=== PATIENT | female | born 1985 | race Caucasian/White ===

== ENCOUNTER 2016-04-19 15:44 | Emergency (ER) | payer OTHER ==
--- NOTE | 2016-04-19 18:02 | ED NURSING NOTES ---
Clinical Report - Nurses [facility] [address] [place] [address] 04/19/2016 15:45 Patient: TRAVIS ORTA TRIAGE Acuity: LEVEL 3. Chief Complaint: VOMITING and DIARRHEA. Alert. No acute distress. SEPSIS SCREEN: Sepsis Screen. Negative (no infection suspected/documented). --16:03 Estella Sheriff R.N. 15:58 04/19/16. BP: 129/79. HR: 98. RR: 18. O2 saturation: 99%. Temp: 99.3 F. Pain level now: 07/31. --16:03 Estella Sheriff R.N. Weight: 120.2 kg stated. Height/Length: 67 inches Per Patient. BMI: 41.5. --16:02 Estella Sheriff R.N. Medications Lipitor Oral 10 mg, daily. --16:00 Estella Sheriff R.N. Geodone 20 mg, 2x a day. --16:00 Estella Sheriff R.N. Lexapro Oral 20 mg, daily. --16:00 Estella Sheriff R.N. Gabapentin Oral in Am, 600 mg at Noc, 2x a day. --16:00 Estella Sheriff R.N. TraZODone HCl Oral 250mg, at bedtime. --16:00 Estella Sheriff R.N. Medication/allergy information source: the patient. --16:03 Estella Sheriff R.N. Allergies Latex. Definite Moderate(hives) Limictial. Definite (Leo/Estevan's) Zoloft. Definite Severe ("out-of-Body Experience) --16:00 Estella Sheriff R.N. History Arrived by private vehicle. Historian: mother. Accompanied by mother. Primary physician (Brittany). Onset. (1 weeks ago). Relates location as in the upper abdomen. Treatment [employer] TEARING: Recently seen in the office. SOCIAL HX: Heavy tobacco smoker (cigarette)- less than 1 pack per day. History of heavy drug use: marijuana. No alcohol use. FALL RISK ASSESSMENT: Fall risk assessment completed. No fall risk identified. NUTRITIONAL RISK ASSESSMENT: The nutritional risk assessment revealed no deficiencies. FUNCTIONAL ASSESSMENT: Functional assessment: no impairments noted. LEARNING NEEDS ASSESSMENT: The learning needs assessment revealed no barriers. SKIN INTEGRITY ASSESSMENT: Skin integrity risk assessment completed. No skin integrity risk identified. --16:03 Estella Sheriff R.N. PAST MEDICAL HX: Last normal menstrual period- Mar 20. --16:04 Estella Sheriff R.N. PROBLEMS: Substance Abuse. Abdominal Pain. PTSD. Anxiety Reaction. Depression. Vomiting. Neck Pain. ADHD - Attention Deficit Hyperactivity Disorder. Fatty Liver disease . Fibromyalgia. --16:01 Estella Sheriff R.N. ADDITIONAL SURGERIES: Appendectomy. Breast Cyst removal . Cholecystectomy. Foot surgery . Knee Surgery. Nose. Tonsillectomy. --16:01 Estella Sheriff R.N. Assessment GENERAL / NEURO / PSYCH: Alert. Oriented X 4. Appears in no acute distress. Patient appears calm and cooperative. RESPIRATORY: Respirations not labored. CVS: Capillary refill less than 2 seconds. GI / : Abdomen soft. SKIN: Mucous membranes are pink. Skin is warm and dry. --16:03 Estella Sheriff R.N. Interventions ID band on patient. To treatment room. --16:03 Estella Sheriff R.N. PHYSICAL ASSESSMENT 16:04/19/16. Ambulatory to room. GENERAL / NEURO / PSYCH: Alert. Oriented X 4. Appears in no acute distress. HEENT: Mucous membranes are pink. RESPIRATORY: Respirations not labored. CVS: Capillary refill less than 2 seconds. GI / : Abdomen soft. SKIN: Skin is warm and dry. --16:03 Estella Sheriff R.N. NURSING PROGRESS NOTES 16:04/19/16. Patient gowned. Two patient identifiers checked. Call light placed in reach. Side rails up x 1. Bed placed in lowest position. Brakes of bed on. Patient ready for evaluation- chart flagged. --16:03 Estella Sheriff R.N. 16:04/19/16. Checked patient name and birthdate: patient confirmed. Instructions provided to collect clean catch urine and patient verbalized understanding. Clean catch urine collected with return of yellow-colored clear urine; sample sent to lab. Specimen labeled in the presence of the patient. --16:04 Estella Sheriff R.N. 16:39 04/19/2016 Site #1 started via IV in the right hand with an 22g angiocath, with aseptic technique and good blood return; one attempt. --16:44 Estella Sheriff R.N. 16:39 04/19/2016 Started bag #1 1000 mL IV Fluids IV NS (Saline); at 999 mL/hr over 1 hour(s) via site #1 via IV pump. Allergies verified and confirmed 5 rights. IV patency established. IV site checked: no pain, redness, or swelling. IV flushed thoroughly pre- and post-medication administration. --16:44 Estella Sheriff R.N. 16:40 04/19/2016 Zofran (Ondansetron HCl) IVP 4 mg given over 1 minute(s) via site #1. Allergies verified and confirmed 5 rights. IV patency established. IV site checked: no pain, redness, or swelling. IV flushed thoroughly pre- and post-medication administration. IVP given by RN. --16:45 Estella Sheriff R.N. 16:40 04/19/2016 Toradol IVP 30 mg given over 1 minute(s) via site #1. Allergies verified and confirmed 5 rights. IV patency established. IV site checked: no pain, redness, or swelling. IV flushed thoroughly pre- and post-medication administration. IVP given by RN. --16:45 Estella Sheriff R.N. <<STRICKEN ENTRY-- 16:43 04/19/2016 Site #1 started via IV in the right hand with an 22g angiocath, with aseptic technique and good blood return; one attempt. Blood drawn: rainbow set. Labeled in the presence of the patient and sent to the lab. --16:43 Estella Sheriff R.N. --END STRIKE>> Correction. --16:43 Estella Sheriff R.N. 17:00. Checked patient name and birthdate. Blood samples drawn from the left forearm: green and purple top. (2 attempts made; lab called to draw remaining sample needed). --17:05 McQuoid, Demi, ER Tech1 17:37 04/19/2016 Zofran (Ondansetron HCl) IVP 4 mg given over 1 minute(s) via site #1. Allergies verified and confirmed 5 rights. IV patency established. IV site checked: no pain, redness, or swelling. IV flushed thoroughly pre- and post-medication administration. IVP given by RN. --17:37 Estella Sheriff R.N. 17:37 04/19/2016 Dilaudid (HYDROmorphone HCl PF) IVP 1 mg given over 2 minute(s) via site #1. Allergies verified, confirmed 5 rights and sedative warning given to the patient. IV patency established. IV site checked: no pain, redness, or swelling. IV flushed thoroughly pre- and post-medication administration. IVP given by RN. --17:37 Estella Sheriff R.N. 17:39 04/19/2016 IV Fluids IV NS Discontinued: bag #1 infused. Total amount infused: 1000 mL. IV patency established. IV site checked: no pain, redness, or swelling. IV flushed thoroughly. --17:39 Estella Sheriff R.N. 17:39 04/19/16. BP: 126/86. HR: 84. RR: 12. O2 saturation: 100% on room air. --17:40 Estella Sheriff R.N. 18:11 04/19/2016 Reglan (Metoclopramide HCl) IVP 10 mg given over 2 minute(s) via site #1. Allergies verified and confirmed 5 rights. IV patency established. IV site checked: no pain, redness, or swelling. IV flushed thoroughly pre- and post-medication administration. IVP given by RN. --18:26 Estella Sheriff R.N. 18:22 04/19/2016 Site #1 removed upon discharge. Catheter intact. Manual pressure and bandage applied. --18:27 Estella Sheriff R.N. DISPOSITION / DISCHARGE Departure time: 18:25 Apr 19 2016. Condition at departure: improved and stable. No learning barriers present. Discharge instructions provided and reviewed with the patient. Reviewed medication(s) side effects, precautions and dosing information. Prescription(s) given to the patient. Patient verbalized understanding. Written instructions provided in [place]. The patient was discharged by the nurse practitioner. She was discharged home and accompanied by parent. She left the Emergency Department ambulatory and via private vehicle. Parent driving. --18:35 Estella Sheriff R.N. 18:33 04/19/16. BP: 124/73. HR: 82. RR: 16. O2 saturation: 100% on room air. Temp: 98.4 F. Pain level now: 04/30. --18:35 Estella Sheriff R.N. Locked/Released at 04/19/2016 18:36 by Estella Sheriff R.N.
--- NOTE | 2016-04-19 18:02 | ED CLINICAL REPORT ---
Clinical Report - Physicians/Mid Levels [facility] [address] [place] [address] 04/19/2016 15:45 Patient: TRAVIS ORTA Time Seen: 15:54; upon arrival, initial patient contact, initial documentation, patient care assumed. Arrived- By private vehicle. Historian- patient. HISTORY OF PRESENT ILLNESS Chief Complaint: VOMITING and DIARRHEA. This started about 1 weeks ago and is still present. No recent travel. She has had nausea and abdominal pain. She has had vomiting (x3-4 episodes today). The vomiting has occurred several times and has been bilious. No feculent emesis, blood-tinged emesis, coffee-grounds emesis, frankly bloody emesis or unusually dark emesis. She has had diarrhea. This has occurred only once. No black stools, bloody stools, constipation, flank pain or history of possible bad food exposure. No known contact with a sick individual or change in routine. Has not recently been camping or on antibiotics. The illness is described as moderate. Similar symptoms previously: Chronically, as bad. Recent medical care: The patient was seen recently in a clinic. ( was at clinic tugboat captain, sent here for fluids). REVIEW OF SYSTEMS No fever, muscle aches, difficulty with urination, dark urine or chest pain. No difficulty breathing. Denies current . All systems otherwise negative, except as recorded above. PAST HISTORY See nurses notes. PROBLEMS: Substance Abuse. Abdominal Pain. PTSD. Anxiety Reaction. Depression. Vomiting. Neck Pain. ADHD - Attention Deficit Hyperactivity Disorder. Fatty Liver disease . Fibromyalgia. --16:01 Estella Sheriff R.N. ADDITIONAL SURGERIES: Appendectomy. Breast Cyst removal . Cholecystectomy. Foot surgery . Knee Surgery. Nose. Tonsillectomy. --16:01 Estella Sheriff R.N. SOCIAL HISTORY Light tobacco smoker. History of occasional drug use: marijuana. No alcohol use. No recent travel. Is a local resident. FAMILY HISTORY Negative. ADDITIONAL NOTES The nursing notes have been reviewed with agreement regarding the chief complaint, HPI, ROS, PMH and patient medications and allergies. PHYSICAL EXAM Vital Signs: 04/19/2016 15:58 BP: 129/79. HR: 98. RR: 18. O2 saturation: 99%. Temp: 99.3 F. Pain level now: 07/31. Have been reviewed as normal and appear to be correct. Appearance: Alert. Oriented X3. No acute distress. Eyes: Pupils equal, round and reactive to light. Eyes normal inspection. ENT: Pharynx normal. Neck: Normal inspection. Neck supple. CVS: Normal heart rate and rhythm. Heart sounds normal. Pulses normal. Respiratory: No respiratory distress. Breath sounds normal. Abdomen: Soft. Mild tenderness in the upper abdomen, right upper quadrant, epigastric area and left upper quadrant. No guarding, rebound tenderness or Phelps's, obturator or psoas sign present. Bowel sounds normal. No organomegaly. No mass. Mildly obese. Tenderness present. Back: Normal inspection. Skin: Skin warm and dry. Normal skin color. No rash. Normal skin turgor. Extremities: Extremities exhibit normal ROM. No lower extremity edema. Neuro: Oriented X 3. No motor deficit. No sensory deficit. LABS, X-RAYS, AND EKG Laboratory Tests: UA-Culture if indicated: (JADYN: 04/19/2016 16:00) ( MsgRcvd 04/19/2016 16:39) Final results Test Result Flag Units (Reference) URINE COLOR YELLOW URINE APPEARANCE CLEAR URINE GLUCOSE NEGATIVE (NEGATIVE) URINE BILIRUBIN NEGATIVE (NEGATIVE) URINE KETONE NEGATIVE (NEGATIVE) URINE SPECIFIC GRAVITY 1.025 (1.010-1.030) URINE PH 6.5 (5.0-8.0) URINE PROTEIN NEGATIVE (NEGATIVE) URINE UROBILINOGEN 0.2 EU/dL (0.2-1.0) URINE NITRITE NEGATIVE (NEGATIVE) URINE BLOOD TRACE-INTACT (NEGATIVE) URINE LEUK ESTERASE NEGATIVE (NEGATIVE) URINE RBC 3-5 rbc/hpf (0-1) URINE WBC 3-5 wbc/hpf (0-1) URINE EPITHELIAL CELLS 3-5 EPI/hpf (0-5) URINE BACTERIA TRACE (<1+) (NONE SEEN) URINE COMMENT CULT NOT INDICATED MUCUS 2+URINE CULTURES ARE SET-UP BASED ON THE FOLLOWING CRITERIA:POSITIVE NITRITEPOSITIVE LEUKOCYTE ESTERASEGREATER THAN 10 WHITE BLOOD CELLSMODERATE (2+) OR GREATER BACTERIA CBC w Diff: (JADYN: 04/19/2016 16:59) ( MsgRcvd 04/19/2016 17:23) Final results Test Result Flag Units (Reference) WHITE BLOOD COUNT 11.8 H K/uL (4.5-11.5) RED BLOOD COUNT 4.91 M/uL (4.00-5.20) HEMOGLOBIN 12.7 gm/dL (12.0-16.0) HEMATOCRIT 38.9 % (36.0-46.0) MEAN CELL VOLUME 79 L fL (80-100) MEAN CORPUSCULAR HGB 26 pg (26-34) MEAN CORPUSCULAR HGB CONC 33 g/dL (31-37) RED CELL DISTRIBUTION WIDTH 16.9 H % (11.6-14.8) PLATELET COUNT 344 K/uL (150-400) NEUTROPHIL % 63.3 % (50-75) LYMPH % 28.5 % (25-40) MONO % 6.3 % (3-14) EOSINOPHIL % 1.3 % (0-4) BASOPHIL % 0.6 % (0-2) CMP: (JADYN: 04/19/2016 16:59) ( MsgRcvd 04/19/2016 17:42) Final results Test Result Flag Units (Reference) GLUCOSE 86 mg/dL (70-110) BUN 7 mg/dL (7-18) CREATININE 0.7 mg/dL (0.6-1.3) Estimated GFR >60 mL/min Estimated GFR- >60 mL/min Note: Persistent reduction over 3 months in eGFR<60 mL/min/1.73 m2 defines CKD. Patients with eGFR values>=60 mL/min/1.73 m2 may also have CKD if evidence ofpersistent proteinuria. Additional information may be foundat www.kidney.org. SODIUM 138 mmol/L (136-145) POTASSIUM 3.8 mmol/L (3.5-5.1) CHLORIDE 104 mmol/L (98-107) CARBON DIOXIDE 24 mmol/L (21-32) CALCIUM 8.6 mg/dL (8.5-10.1) TOTAL PROTEIN 7.3 g/dL (6.4-8.2) ALBUMIN 3.4 g/dL (3.3-5.0) BILIRUBIN, TOTAL 0.3 mg/dL (0.0-1.0) ALKALINE PHOSPHATASE 76 U/L (46-116) AST (SGOT) 12 L U/L (15-37) ALT (SGPT) 18 U/L (12-78) LIPASE 180 U/L (73-393) AMYLASE 49 U/L (25-115) . PROGRESS AND PROCEDURES Patient counseled in person regarding the patient's stable condition, test results and diagnosis. 17:51. Differential Diagnosis: I considered gastritis, peptic ulcer disease, ischemia, gastroesophageal reflux disease, gastroparesis, Crohn's disease, ulcerative colitis, small bowel obstruction, colonic obstruction, colon cancer, gastroenteritis, cholecystitis, pancreatitis, viral syndrome, enterocolitis, urinary tract infection, hepatitis, sepsis, drugs and as a possible cause of vomiting in this patient. This is a partial list of diagnoses considered. Above considerations are based on history, physical exam and laboratory data. Differential diagnosis was discussed with patient. Disposition: Discharged home in good and improved condition (18:02). Condition: good and stable. CLINICAL IMPRESSION Intractable vomiting with nausea. No dehydration or volume depletion. Not bilious. Acute abdominal pain of undetermined cause. INSTRUCTIONS Take clear liquids only (frequent sips) for the next 24 hours until better. May continue medications with sips only. Advance diet as tolerated. Avoid. Warnings: GENERAL WARNINGS: Return or contact your physician immediately if your condition worsens or changes unexpectedly, if not improving as expected, or if other problems arise. SPECIFICALLY, return if you develop pain in the abdomen or pelvis, fever, the inability to keep fluids down, blood in vomitus, blood in diarrhea, fainting or lightheadedness. Prescription Medications: Reglan 10 mg tablets: take 1 orally every 6 hours as needed for nausea or vomiting. Dispense twenty (20). No refills. Bentyl 20 mg tablets: take 1 orally every 6 hours as needed. Dispense thirty (30). No refills. Substitution is permissible. Follow-up: Follow up with your doctor in about two days even if well. Summary of care provided to patient. Understanding of the discharge instructions verbalized by patient. (Electronically signed by Virginia Ames A.R.N.P. 04/19/2016 19:31)
--- NOTE | 2016-04-19 18:03 | ED ORDER SUMMARY ---
..... Patient: TRAVIS ORTA OrderSheet [facility] VisitID: [id number] [address] [place] [address] 31y, F Registration Date/Time: 04/19/2016 ORDER SHEET Weight: 120.2 kg (stated) Allergies: Latex, Limictial, Zoloft GENERAL ORDERS: CBC w Diff Urgent (16:04/19/2016 HBivens A.R.N.P.) (Ack 16:40 AMcQuoid ER Tech1) (17:31 MWinterer R.N.) CMP Urgent (16:04/19/2016 HBivens A.R.N.P.) (Ack 16:40 AMcQuoid ER Tech1) (17:31 MWinterer R.N.) UA-Culture if indicated Urgent (16:04/19/2016 HBivens A.R.N.P.) (Ack 16:40 AMcQuoid ER Tech1) (16:40 AMcQuoid ER Tech1) Amylase Urgent (16:04/19/2016 HBivens A.R.N.P.) (Ack 16:40 AMcQuoid ER Tech1) (17:31 MWinterer R.N.) Lipase Urgent (16:04/19/2016 HBivens A.R.N.P.) (Ack 16:40 AMcQuoid ER Tech1) (17:31 MWinterer R.N.) Serum Qualitative Urgent (16:04/19/2016 HBivens A.R.N.P.) (Ack 16:40 AMcQuoid ER Tech1) (17:31 MWinterer R.N.) MEDICATION ORDERS: IV FLUIDS: IV NS : initial bolus 1000 mL (1000 mL/hr), then none - (NOW) (16:04/19/2016 HBivens A.R.N.P.) (Ack 16:26 MWinterer R.N.) (16:44 MWinterer R.N.) Zofran IV 4 mg (NOW) (16:04/19/2016 HBivens A.R.N.P.) (Ack 16:26 MWinterer R.N.) (16:45 MWinterer R.N.) Toradol IV 30 mg (NOW) (16:25 04/19/2016 HBivens A.R.N.P.) (Ack 16:26 MWinterer R.N.) (16:45 MWinterer R.N.) Zofran IV 4 mg (NOW) (17:29 04/19/2016 HBivens A.R.N.P.) (Ack 17:32 MWinterer R.N.) (17:37 MWinterer R.N.) Dilaudid IV 1 mg (HIGH ALERT MEDICATION, NOW) (17:31 04/19/2016 HBivens A.R.N.P.) (Ack 17:32 MWinterer R.N.) (17:37 MWinterer R.N.) Reglan IV 10 mg (NOW) (18:04 04/19/2016 HBivens A.R.N.P.) (Ack 18:12 MWinterer R.N.) (18:26 MWinterer R.N.) ORDER SHEET NOTES: [Electronically signed by Estella Sheriff R.N. (18:36 04/19/2016)] [Electronically signed by Virginia Ames.R.N.P. (19:31 04/19/2016)] [Electronically locked/signed by Estella Sheriff R.N. (18:36 04/19/2016)]
--- NOTE | 2016-04-19 18:03 | ED ORDER SUMMARY ---
..... Patient: TRAVIS ORTA OrderSheet [facility] VisitID: [id number] [address] [place] [address] 31y, F Registration Date/Time: 04/19/2016 ORDER SHEET Weight: 120.2 kg (stated) Allergies: Latex, Limictial, Zoloft GENERAL ORDERS: CBC w Diff Urgent (16:04/19/2016 HBivens A.R.N.P.) (Ack 16:40 AMcQuoid ER Tech1) (17:31 MWinterer R.N.) CMP Urgent (16:04/19/2016 HBivens A.R.N.P.) (Ack 16:40 AMcQuoid ER Tech1) (17:31 MWinterer R.N.) UA-Culture if indicated Urgent (16:04/19/2016 HBivens A.R.N.P.) (Ack 16:40 AMcQuoid ER Tech1) (16:40 AMcQuoid ER Tech1) Amylase Urgent (16:04/19/2016 HBivens A.R.N.P.) (Ack 16:40 AMcQuoid ER Tech1) (17:31 MWinterer R.N.) Lipase Urgent (16:04/19/2016 HBivens A.R.N.P.) (Ack 16:40 AMcQuoid ER Tech1) (17:31 MWinterer R.N.) Serum Qualitative Urgent (16:04/19/2016 HBivens A.R.N.P.) (Ack 16:40 AMcQuoid ER Tech1) (17:31 MWinterer R.N.) MEDICATION ORDERS: IV FLUIDS: IV NS : initial bolus 1000 mL (1000 mL/hr), then none - (NOW) (16:04/19/2016 HBivens A.R.N.P.) (Ack 16:26 MWinterer R.N.) (16:44 MWinterer R.N.) Zofran IV 4 mg (NOW) (16:04/19/2016 HBivens A.R.N.P.) (Ack 16:26 MWinterer R.N.) (16:45 MWinterer R.N.) Toradol IV 30 mg (NOW) (16:25 04/19/2016 HBivens A.R.N.P.) (Ack 16:26 MWinterer R.N.) (16:45 MWinterer R.N.) Zofran IV 4 mg (NOW) (17:29 04/19/2016 HBivens A.R.N.P.) (Ack 17:32 MWinterer R.N.) (17:37 MWinterer R.N.) Dilaudid IV 1 mg (HIGH ALERT MEDICATION, NOW) (17:31 04/19/2016 HBivens A.R.N.P.) (Ack 17:32 MWinterer R.N.) (17:37 MWinterer R.N.) Reglan IV 10 mg (NOW) (18:04 04/19/2016 HBivens A.R.N.P.) (Ack 18:12 MWinterer R.N.) (18:26 MWinterer R.N.) ORDER SHEET NOTES: [Electronically signed by Estella Sheriff R.N. (18:36 04/19/2016)] [Electronically signed by Virginia Ames.R.N.P. (19:31 04/19/2016)] [Electronically locked/signed by Estella Sheriff R.N. (18:36 04/19/2016)]
--- NOTE | 2016-04-19 19:31 | ED MED RECONCILIATION SUMMARY ---
Patient: TRAVIS ORTA Medication Reconciliation Report [facility] VisitID: [id number] [address] [place] [address] 31y, F Registration Date/Time: 04/19/2016 Weight: 120.2 kg Height/Length: 67 in. BMI: 41.5 ALLERGIES: Latex, Limictial, Zoloft The patient's Home Medications are listed below: THE FOLLOWING MEDICATIONS NEED TO BE RECONCILED: Gabapentin Oral in Am, 600 mg at Noc, 2x a day Geodone 20 mg, 2x a day Lexapro Oral 20 mg, daily Lipitor Oral 10 mg, daily TraZODone HCl Oral 250mg, at bedtime The source(s) of the original Home Medication information: patient The following Medications were given to the patient in the Emergency Department: IV NS IV Fluids bolus 0, then 999 mL/hr, administered: 04/19/2016 4:39:00 PM Zofran [IVP] IVP 4 mg, administered: 04/19/2016 4:40:00 PM Toradol [IVP] IVP 30 mg, administered: 04/19/2016 4:40:00 PM Zofran [IVP] IVP 4 mg, administered: 04/19/2016 5:37:00 PM Dilaudid [IVP] IVP 1 mg, administered: 04/19/2016 5:37:00 PM Reglan [IVP] IVP 10 mg, administered: 04/19/2016 6:11:00 PM The following Medications were prescribed to the patient: Reglan 10 mg tablets: take 1 orally every 6 hours as needed for nausea or vomiting. Dispense twenty (20). No refills. -- Virginia Ames A.R.N.PDanielle Bentyl 20 mg tablets: take 1 orally every 6 hours as needed. Dispense thirty (30). No refills. Substitution is permissible. -- Virginia Ames A.R.N.P.
--- NOTE | 2016-04-19 19:31 | ED MAR SUMMARY ---
..... Medication Administration Record [facility] [address] [place] [address] Patient: TRAVIS ORTA Visit ID: [id number] 31y, F Weight: 120.2 kg Height/Length: 67 in BMI: 41.5 ALLERGIES: Latex, Limictial, Zoloft Start 16:39 04/19/2016 Estella Sheriff R.N., Stop 17:39 04/19/2016 Estella Sheriff R.N. Medication Administered: IV NS (SALINE), Dose: IV Fluids over 1 hour(s), Rate: 999 mL/hr, Dispensed: 1000 mL bag, Site: #1 right hand. Medication Ordered: IV NS : initial bolus 1000 mL (1000 mL/hr), then none - (NOW). Given 16:40 04/19/2016 Estella Sheriff R.N. Medication Administered: ZOFRAN [IVP] (ONDANSETRON HCL), Dose: 4 mg IVP over 1 minute(s), Site: #1 right hand. Medication Ordered: Zofran IV 4 mg (NOW). Given 16:40 04/19/2016 Estella Sheriff R.N. Medication Administered: TORADOL [IVP], Dose: 30 mg IVP over 1 minute(s), Site: #1 right hand. Medication Ordered: Toradol IV 30 mg (NOW). Given 17:37 04/19/2016 Estella Sheriff R.N. Medication Administered: ZOFRAN [IVP] (ONDANSETRON HCL), Dose: 4 mg IVP over 1 minute(s), Site: #1 right hand. Medication Ordered: Zofran IV 4 mg (NOW). Given 17:37 04/19/2016 Estella Sheriff R.N. Medication Administered: DILAUDID [IVP] (HYDROMORPHONE HCL PF), Dose: 1 mg IVP over 2 minute(s), Site: #1 right hand. Medication Ordered: Dilaudid IV 1 mg (HIGH ALERT MEDICATION, NOW). Given 18:11 04/19/2016 Estella Sheriff R.N. Medication Administered: REGLAN [IVP] (METOCLOPRAMIDE HCL), Dose: 10 mg IVP over 2 minute(s), Site: #1 right hand. Medication Ordered: Reglan IV 10 mg (NOW).
--- NOTE | 2016-04-19 19:31 | ED DISCHARGE INSTRUCTIONS ---
Patient: TRAVIS ORTA General Instructions [facility] VisitID: [id number] [place] [address] 31y, F Registration Date/Time: 04/19/2016 Intractable vomiting with nausea. No dehydration or volume depletion. Not bilious. Acute abdominal pain of undetermined cause. INSTRUCTIONS Take clear liquids only (frequent sips) for the next 24 hours until better. May continue medications with sips only. Advance diet as tolerated. Avoid. Warnings: GENERAL WARNINGS: Return or contact your physician immediately if your condition worsens or changes unexpectedly, if not improving as expected, or if other problems arise. SPECIFICALLY, return if you develop pain in the abdomen or pelvis, fever, the inability to keep fluids down, blood in vomitus, blood in diarrhea, fainting or lightheadedness. Prescription Medications: Reglan 10 mg tablets: take 1 orally every 6 hours as needed for nausea or vomiting. Dispense twenty (20). No refills. Bentyl 20 mg tablets: take 1 orally every 6 hours as needed. Dispense thirty (30). No refills. Substitution is permissible. Follow-up: Follow up with your doctor in about two days even if well. Summary of care provided to patient. Understanding of the discharge instructions verbalized by patient. ADDITIONAL INFORMATION Vomiting [6Yr-Adult] Vomiting is a common symptom that may be due to different causes. These include gastroenteritis ("stomach flu"), food poisoning and gastritis. There are other more serious causes of vomiting which may be hard to diagnose early in the illness. Therefore, it is important to watch for the warning signs listed below. The main danger from repeated vomiting is dehydration. This is due to excess loss of water and minerals from the body. When this occurs, body fluids must be replaced. Home Care: If symptoms are severe, rest at home for the next 24 hours. You may use acetaminophen (Tylenol) or ibuprofen (Motrin, Advil) to control fever, unless another medicine was prescribed. [NOTE : If you have chronic liver or kidney disease or ever had a stomach ulcer or GI bleeding, talk with your doctor before using these medicines.] (Aspirin should never be used in anyone under 18 years of age who is ill with a fever. It may cause severe liver damage.) Avoid tobacco and alcohol use, which may worsen your symptoms. If medicines for vomiting were prescribed, take as directed. Once vomiting stops, then follow these guidelines: During The First 12-24 Hours follow the diet below: FRUIT JUICES: Apple, grape juice, clear fruit drinks, and electrolyte replacement drinks. BEVERAGES: Soft drinks without caffeine; mineral water (plain or flavored), decaffeinated tea and coffee. SOUPS: Clear broth, consomm and bouillon DESSERTS: Plain gelatin, popsicles and fruit juice bars. As you feel better, you may add 6-8 ounces of yogurt per day. During The Next 24 Hours you may add the following to the above: Hot cereal, plain toast, bread, rolls, crackers Plain noodles, rice, mashed potatoes, chicken noodle or rice soup Unsweetened canned fruit (avoid pineapple), bananas Limit caffeine and chocolate. No spices or seasonings except salt. During The Next 24 Hours Gradually resume a normal diet, as you feel better and your symptoms lessen. Follow Up with your doctor as advised if you are not improving over the next 2-3 days. Get Prompt Medical Attention if any of the following occur: Constant right-sided lower abdominal pain or increasing general abdominal pain Continued vomiting (unable to keep liquids down) for 24 hours Frequent diarrhea (more than 5 times a day); blood (red or black color) or mucus in diarrhea Reduced urine output or extreme thirst Weakness, dizziness or fainting Unusually drowsy or confused Fever of 100.4F (38C) oral or higher, not better with fever medication Yellow color of the eyes or skin Abdominal Pain, Unknown Cause (Female) The exact cause of your abdominal (stomach) pain is not certain. This does not mean that this is something to worry about, or the right tests were not done. Everyone likes to know the exact cause of the problem, but sometimes with abdominal pain, there is no clear-cut cause, and this could be a good thing. The good news is that your symptoms can be treated, and you will feel better. Your condition does not seem serious now; however, sometimes the signs of a serious problem may take more time to appear. For this reason,it is important for you to watch for any new symptoms, problems,or worsening of your condition. Over the next few days, the abdominal pain may come and go, or be continuous. Other common symptoms can include nausea and vomiting. Sometimes it can be difficult to tell if you feel nauseous, you may just feel bad and not associate that feeling with nausea. Constipation, diarrhea, and a fever may go along with the pain. The pain may continue even if treated correctly over the following days. Depending on how things go, sometimes the cause can become clear and may require further or different treatment. Additional evaluations, medications, or tests may be needed. Home care Your health care provider may prescribe medications for pain, symptoms, or an infection. Follow the health care provider's instructions for taking these medications. General care Rest until your next exam. No strenuous activities. Try to find positions that ease discomfort. A small pillow placed on the abdomen may help relieve pain. Something warm on your abdomen (such as a heating pad) may help, but be careful not to burn yourself. Diet Do not force yourself to eat, especially if having cramps, vomiting, or diarrhea. Water is important so you do not get dehydrated. Soup may also be good. Sports drinks may also help, especially if they are not too acidic. Make sure you don't drink sugary drinks as this can make things worse. Take liquids in small amounts. Do not guzzle them. Caffeine sometimes makes the pain and cramping worse. Avoid dairy products if you have vomiting or diarrhea. Don't eat large amounts at a time. Wait a few minutes between bites. Eat a diet low in fiber (called a low-residue diet). Foods allowed include refined breads, white rice, fruit and vegetable juices without pulp, tender meats. These foods will pass more easily through the intestine. Avoid whole-grain foods, whole fruits and vegetables, meats, seeds and nuts, fried or fatty foods, dairy, alcohol and spicy foods until your symptoms go away. Follow-up care Follow up with your health care provider as instructed, or if your pain does not begin to improve in the next 24 hours. When to seek medical care Seek prompt medical care if any of the following occur: Pain gets worse or moves to the right lower abdomen New or worsening vomiting or diarrhea Swelling of the abdomen Unable to pass stool for more than three days Fever of 100.4F (38C) or higher, or as directed by your healthcare provider. Blood in vomit or bowel movements (dark red or black color) Jaundice (yellow color of eyes and skin) Weakness, dizziness Chest, arm, back, neck or jaw pain Unexpected vaginal bleeding or missed period Call 911 Call emergency services if any of the following occur: Trouble breathing Confusion Fainting or loss of consciousness Rapid heart rate Seizure Clear Liquid Diet Clear liquids are any liquid that you can see through as well as those that are very easy to digest. This is used while the body is recovering from irritation or infection of the stomach or intestinal tract. It may also be used before special procedures or surgery. This diet is to be used no more than three days. You may include the following items. Adults Adults should drink a total of 23 quarts of liquid per day. It may be easier to drink small frequent servings rather than a few large ones. Liquids can include: Fruit juices.Strained orange juice or lemonade (no pulp), apple, grape and cranberry juice, clear fruit drinks, sports drinks Beverages.Sport drinks, sodas, mineral water (plain or flavored), tea, black coffee, liquid gelatin (add twice the recommended amount of water) Soups.Clear broth, consomm, bouillon Desserts.Plain gelatin, popsicles, fruit juice bars Children Over 2 years old The following liquids are acceptable for children over age 2: Fruit juices.Strained orange juice or lemonade (no pulp), apple, grape and cranberry juice, clear fruit drinks Beverages. Sports drinks, sodas, mineral water (plain or flavored), tea, liquid gelatin (add twice the recommended amount of water) Soups. Clear broth, consomm, bouillon Desserts. Plain gelatin, popsicles, fruit juice bars Children under 2 years old Oral rehydration fluids such are available at drug stores and most grocery stores without a prescription. Adrian Diet A bland diet is used for patients with an upset stomach. It consists of foods that are mild and easy to digest. It is better to eat small frequent meals rather than three large meals a day. BEVERAGES OK: Fruit juices, non-caffeinated teas and coffee, non-carbonated castillo AVOID: Carbonated beverage, caffeinated tea and coffee, all alcoholic beverages BREAD OK: Refined white, wheat or rye bread, melissa or soda crackers, [place] toast, plain rolls, bagels AVOID: Whole-grain bread CEREAL OK: Refined cereals: cooked or ready to eat AVOID: Whole grain cereals and granola, or those containing bran, seeds or nuts DESSERTS OK: Peanut butter and all others except those to "avoid" AVOID: Chocolate, cocoa, coconut, popcorn, nuts, seeds, jam, marmalade FRUITS OK: Canned, cooked, frozen or fresh fruits without seeds or tough skin AVOID: Olives, skin and seeds of fruit MEATS OK: All fresh or preserved meat, fish and fowl AVOID: Any that are prepared with those spices to "avoid" CHEESE & EGGS OK: Eggs, cottage cheese, cream cheese, other cheeses AVOID: All cheeses made with those spices to "avoid" POTATOES & PASTA OK: Potato, rice, macaroni, noodles, spaghetti AVOID: None SOUPS OK: All soups without heavy seasoning AVOID: Soups made with those spices to "avoid" VEGETABLES OK: Canned, cooked, fresh or frozen mildly flavored vegetables without seeds, skins or coarse fiber AVOID: Vegetables prepared with those spices to "avoid"; skin and seeds of vegetables and those with coarse fiber SPICES OK: Salt, lemon and [place] juice, vinegar, all extracts, guerline, cinnamon, thyme, mace, allspice, paprika AVOID: [place] powder, cloves, pepper, seed spices, garlic, gravy pickles, highly seasoned salad dressings Clear Liquid Diet Clear liquids are any liquid that you can see through as well as those that are very easy to digest. This is used while the body is recovering from irritation or infection of the stomach or intestinal tract. It may also be used before special procedures or surgery. This diet is to be used no more than three days. You may include the following items. Adults Adults should drink a total of 23 quarts of liquid per day. It may be easier to drink small frequent servings rather than a few large ones. Liquids can include: Fruit juices.Strained orange juice or lemonade (no pulp), apple, grape and cranberry juice, clear fruit drinks, sports drinks Beverages.Sport drinks, sodas, mineral water (plain or flavored), tea, black coffee, liquid gelatin (add twice the recommended amount of water) Soups.Clear broth, consomm, bouillon Desserts.Plain gelatin, popsicles, fruit juice bars Children Over 2 years old The following liquids are acceptable for children over age 2: Fruit juices.Strained orange juice or lemonade (no pulp), apple, grape and cranberry juice, clear fruit drinks Beverages. Sports drinks, sodas, mineral water (plain or flavored), tea, liquid gelatin (add twice the recommended amount of water) Soups. Clear broth, consomm, bouillon Desserts. Plain gelatin, popsicles, fruit juice bars Children under 2 years old Oral rehydration fluids such are available at drug stores and most grocery stores without a prescription. Metoclopramide Hydrochloride Oral tablet What is this medicine? METOCLOPRAMIDE (met oh kloe PRA mide) is used to treat the symptoms of gastroesophageal reflux disease (GERD) like heartburn. It is also used to treat people with slow emptying of the stomach and intestinal tract. How should I use this medicine? Take this medicine by mouth with a glass of water. Follow the directions on the prescription label. Take this medicine on an empty stomach, about 30 minutes before eating. Take your doses at regular intervals. Do not take your medicine more often than directed. Do not stop taking except on the advice of your doctor or health adult daycare coordinator. A special MedGuide will be given to you by the pharmacist with each prescription and refill. Be sure to read this information carefully each time. Talk to your crystal grower regarding the use of this medicine in children. Special care may be needed. What side effects may I notice from receiving this medicine? Side effects that you should report to your doctor or health adult daycare coordinator as soon as possible: allergic reactions like skin rash, itching or hives, swelling of the face, lips, or tongue abnormal production of milk in females breast enlargement in both males and females change in the way you walk difficulty moving, speaking or swallowing drooling, lip smacking, or rapid movements of the tongue excessive sweating fever involuntary or uncontrollable movements of the eyes, head, arms and legs irregular heartbeat or palpitations muscle twitches and spasms unusually weak or tired Side effects that usually do not require medical attention (report to your doctor or health adult daycare coordinator if they continue or are bothersome): change in sex drive or performance depressed mood diarrhea difficulty sleeping headache menstrual changes restless or nervous What may interact with this medicine? acetaminophen cyclosporine digoxin medicines for blood pressure medicines for diabetes, including insulin medicines for hay fever and other allergies medicines for depression, especially an Monoamine Oxidase Inhibitor (MAOI) medicines for Parkinson's disease, like levodopa medicines for sleep or for pain tetracycline What if I miss a dose? If you miss a dose, take it as soon as you can. If it is almost time for your next dose, take only that dose. Do not take double or extra doses. Where should I keep my medicine? Keep out of the reach of children. Store at room temperature between 20 and 25 degrees C (68 and 77 degrees F). Protect from light. Keep container tightly closed. Throw away any unused medicine after the expiration date. What should I tell my health care provider before I take this medicine? They need to know if you have any of these conditions: breast cancer depression diabetes heart failure high blood pressure kidney disease liver disease Parkinson's disease or a movement disorder pheochromocytoma seizures stomach obstruction, bleeding, or perforation an unusual or allergic reaction to metoclopramide, procainamide, sulfites, other medicines, foods, dyes, or preservatives or trying to get breast-feeding What should I watch for while using this medicine? It may take a few weeks for your stomach condition to start to get better. However, do not take this medicine for longer than 12 weeks. The longer you take this medicine, and the more you take it, the greater your chances are of developing serious side effects. If you are an elderly patient, a female patient, or you have diabetes, you may be at an increased risk for side effects from this medicine. Contact your doctor immediately if you start having movements you cannot control such as lip smacking, rapid movements of the tongue, involuntary or uncontrollable movements of the eyes, head, arms and legs, or muscle twitches and spasms. Patients and their families should watch out for worsening depression or thoughts of suicide. Also watch out for any sudden or severe changes in feelings such as feeling anxious, agitated, panicky, irritable, hostile, aggressive, impulsive, severely restless, overly excited and hyperactive, or not being able to sleep. If this happens, especially at the beginning of treatment or after a change in dose, call your doctor. Do not treat yourself for high fever. Ask your doctor or health adult daycare coordinator for advice. You may get drowsy or dizzy. Do not drive, use machinery, or do anything that needs mental alertness until you know how this drug affects you. Do not stand or sit up quickly, especially if you are an older patient. This reduces the risk of dizzy or fainting spells. Alcohol can make you more drowsy and dizzy. Avoid alcoholic drinks. Dicyclomine Hydrochloride Oral tablet What is this medicine? DICYCLOMINE (dye SYE isabelle khoury) is used to treat bowel problems including irritable bowel syndrome. How should I use this medicine? Take this medicine by mouth with a glass of water. Follow the directions on the prescription label. It is best to take this medicine on an empty stomach, 30 minutes to 1 hour before meals. Take your medicine at regular intervals. Do not take your medicine more often than directed. Talk to your crystal grower regarding the use of this medicine in children. Special care may be needed. While this drug may be prescribed for children as young as 6 months of age for selected conditions, precautions do apply. Patients over 65 years old may have a stronger reaction and need a smaller dose. What side effects may I notice from receiving this medicine? Side effects that you should report to your doctor or health adult daycare coordinator as soon as possible: agitation, nervousness, confusion difficulty swallowing dizziness, drowsiness fast or slow heartbeat hallucinations pain or difficulty passing urine Side effects that usually do not require medical attention (report to your doctor or health adult daycare coordinator if they continue or are bothersome): constipation headache nausea or vomiting sexual difficulty What may interact with this medicine? amantadine antacids benztropine digoxin disopyramide medicines for allergies, colds and breathing difficulties medicines for alzheimer's disease medicines for anxiety or sleeping problems medicines for depression or psychotic disturbances medicines for diarrhea medicines for pain metoclopramide tegaserod What if I miss a dose? If you miss a dose, take it as soon as you can. If it is almost time for your next dose, take only that dose. Do not take double or extra doses. Where should I keep my medicine? Keep out of the reach of children. Store at room temperature below 30 degrees C (86 degrees F). Protect from light. Throw away any unused medicine after the expiration date. What should I tell my health care provider before I take this medicine? They need to know if you have any of these conditions: difficulty passing urine esophagus problems or heartburn glaucoma heart disease, or previous heart attack myasthenia gravis prostate trouble stomach infection, or obstruction ulcerative colitis an unusual or allergic reaction to dicyclomine, other medicines, foods, dyes, or preservatives or trying to get breast-feeding What should I watch for while using this medicine? You may get drowsy, dizzy, or have blurred vision. Do not drive, use machinery, or do anything that needs mental alertness until you know how this medicine affects you. To reduce the risk of dizzy or fainting spells, do not sit or stand up quickly, especially if you are an older patient. Alcohol can make you more drowsy, avoid alcoholic drinks. Stay out of bright light and wear sunglasses if this medicine makes your eyes more sensitive to light. Avoid extreme heat (hot tubs, saunas). This medicine can cause you to sweat less than normal. Your body temperature could increase to dangerous levels, which may lead to heat stroke. Antacids can stop this medicine from working. If you get an upset stomach and want to take an antacid, make sure there is an interval of at least 1 to 2 hours before or after you take this medicine. Your mouth may get dry. Chewing sugarless gum or sucking hard candy, and drinking plenty of water may help. Contact your doctor if the problem does not go away or is severe. You have been given the following additional information: Vomiting (6Y-Adult) Abdominal Pain, Unknown Cause, (Female) Diet, Clear Liquid Diet, Adrian (Adult) Diet, Clear Liquid Metoclopramide Hydrochloride Oral tablet Dicyclomine Hydrochloride Oral tablet (Electronically signed by Virginia Ames A.R.N.P. 04/19/2016 19:31)
--- NOTE | 2016-04-19 19:31 | ED MAR SUMMARY ---
..... Medication Administration Record [facility] [address] [place] [address] Patient: TRAVIS ORTA Visit ID: [id number] 31y, F Weight: 120.2 kg Height/Length: 67 in BMI: 41.5 ALLERGIES: Latex, Limictial, Zoloft Start 16:39 04/19/2016 Estella Sheriff R.N., Stop 17:39 04/19/2016 Estella Sheriff R.N. Medication Administered: IV NS (SALINE), Dose: IV Fluids over 1 hour(s), Rate: 999 mL/hr, Dispensed: 1000 mL bag, Site: #1 right hand. Medication Ordered: IV NS : initial bolus 1000 mL (1000 mL/hr), then none - (NOW). Given 16:40 04/19/2016 Estella Sheriff R.N. Medication Administered: ZOFRAN [IVP] (ONDANSETRON HCL), Dose: 4 mg IVP over 1 minute(s), Site: #1 right hand. Medication Ordered: Zofran IV 4 mg (NOW). Given 16:40 04/19/2016 Estella Sheriff R.N. Medication Administered: TORADOL [IVP], Dose: 30 mg IVP over 1 minute(s), Site: #1 right hand. Medication Ordered: Toradol IV 30 mg (NOW). Given 17:37 04/19/2016 Estella Sheriff R.N. Medication Administered: ZOFRAN [IVP] (ONDANSETRON HCL), Dose: 4 mg IVP over 1 minute(s), Site: #1 right hand. Medication Ordered: Zofran IV 4 mg (NOW). Given 17:37 04/19/2016 Estella Sheriff R.N. Medication Administered: DILAUDID [IVP] (HYDROMORPHONE HCL PF), Dose: 1 mg IVP over 2 minute(s), Site: #1 right hand. Medication Ordered: Dilaudid IV 1 mg (HIGH ALERT MEDICATION, NOW). Given 18:11 04/19/2016 Estella Sheriff R.N. Medication Administered: REGLAN [IVP] (METOCLOPRAMIDE HCL), Dose: 10 mg IVP over 2 minute(s), Site: #1 right hand. Medication Ordered: Reglan IV 10 mg (NOW).
--- NOTE | 2016-04-19 19:31 | ED MED RECONCILIATION SUMMARY ---
Patient: TRAVIS ORTA Medication Reconciliation Report [facility] VisitID: [id number] [address] [place] [address] 31y, F Registration Date/Time: 04/19/2016 Weight: 120.2 kg Height/Length: 67 in. BMI: 41.5 ALLERGIES: Latex, Limictial, Zoloft The patient's Home Medications are listed below: THE FOLLOWING MEDICATIONS NEED TO BE RECONCILED: Gabapentin Oral in Am, 600 mg at Noc, 2x a day Geodone 20 mg, 2x a day Lexapro Oral 20 mg, daily Lipitor Oral 10 mg, daily TraZODone HCl Oral 250mg, at bedtime The source(s) of the original Home Medication information: patient The following Medications were given to the patient in the Emergency Department: IV NS IV Fluids bolus 0, then 999 mL/hr, administered: 04/19/2016 4:39:00 PM Zofran [IVP] IVP 4 mg, administered: 04/19/2016 4:40:00 PM Toradol [IVP] IVP 30 mg, administered: 04/19/2016 4:40:00 PM Zofran [IVP] IVP 4 mg, administered: 04/19/2016 5:37:00 PM Dilaudid [IVP] IVP 1 mg, administered: 04/19/2016 5:37:00 PM Reglan [IVP] IVP 10 mg, administered: 04/19/2016 6:11:00 PM The following Medications were prescribed to the patient: Reglan 10 mg tablets: take 1 orally every 6 hours as needed for nausea or vomiting. Dispense twenty (20). No refills. -- Virginia Ames A.R.N.PDanielle Bentyl 20 mg tablets: take 1 orally every 6 hours as needed. Dispense thirty (30). No refills. Substitution is permissible. -- Virginia Ames A.R.N.P.
[2016-07-08] MEDS ORDERED: TRAZODONE HCL100 MG PO (13:59)
[2016-07-08] MEDS ORDERED: VISTARIL25 MG PO (13:59)
[2016-07-08] MEDS ORDERED: LATUDA20 MG PO (14:00)
[2016-07-08] MEDS ORDERED: LIPITOR10 MG PO (14:00)
[2016-07-08] MEDS ORDERED: GABAPENTIN100 MG PO (14:01)
[2016-07-08] MEDS ORDERED: LEXAPRO20 MG PO (14:01)
[2016-07-08] MEDS ORDERED: PROBIOTI1 PO (14:02)
[2016-07-08] MEDS ORDERED: ZYRTEC ALLERGY10 MG PO (14:02)
[2016-07-08] MEDS ORDERED: MULTIVITAMIN GUMMIES PO (14:03)
== END 2016-04-19 18:25 | disposition home or self-care (01) ==
LOC: ED SRH 15:44
DX: R11.2 Nausea with vomiting, unspecified (principal); R10.9 Unspecified abdominal pain; F17.210 Nicotine dependence, cigarettes, uncomplicated; Z79.899 Other long term (current) drug therapy; Z88.8 Allergy status to other drugs, medicaments and biological substances
CPT/HCPCS: 90004; 90074; 90100; 92235; 92530; 95059; 98428

== ENCOUNTER 2016-05-14 11:31 | Outpatient (CLI) | payer OTHER ==
--- NOTE | 2016-05-14 12:22 | DIAGNOSTIC IMAGING REPORT ---
PROCEDURE: XR FOOT 3 VIEWS - RIGHT INDICATION: S/P FOOT SURGERY , RIGHT TECHNIQUE: Three views. COMPARISON: None. FINDINGS: Healed second metatarsal fracture fixed with a side plate and six screws. IMPRESSION: 1. Healed second metatarsal fracture fixed with a side plate and six screws.
[2016-07-08] MEDS ORDERED: VISTARIL25 MG PO (13:59)
[2016-07-08] MEDS ORDERED: TRAZODONE HCL100 MG PO (13:59)
[2016-07-08] MEDS ORDERED: LATUDA20 MG PO (14:00)
[2016-07-08] MEDS ORDERED: LIPITOR10 MG PO (14:00)
[2016-07-08] MEDS ORDERED: LEXAPRO20 MG PO (14:01)
[2016-07-08] MEDS ORDERED: GABAPENTIN100 MG PO (14:01)
[2016-07-08] MEDS ORDERED: PROBIOTI1 PO (14:02)
[2016-07-08] MEDS ORDERED: ZYRTEC ALLERGY10 MG PO (14:02)
[2016-07-08] MEDS ORDERED: MULTIVITAMIN GUMMIES PO (14:03)
== END 2016-05-14 23:00 | disposition home or self-care (01) ==
LOC: XR SRH 11:31
DX: Z98.890 Other specified postprocedural states (principal)

== ENCOUNTER 2016-05-17 10:23 | Outpatient (CLI) | payer OTHER ==
[2016-07-08] MEDS ORDERED: VISTARIL25 MG PO (13:59)
[2016-07-08] MEDS ORDERED: TRAZODONE HCL100 MG PO (13:59)
[2016-07-08] MEDS ORDERED: LATUDA20 MG PO (14:00)
[2016-07-08] MEDS ORDERED: LIPITOR10 MG PO (14:00)
[2016-07-08] MEDS ORDERED: GABAPENTIN100 MG PO (14:01)
[2016-07-08] MEDS ORDERED: LEXAPRO20 MG PO (14:01)
[2016-07-08] MEDS ORDERED: PROBIOTI1 PO (14:02)
[2016-07-08] MEDS ORDERED: ZYRTEC ALLERGY10 MG PO (14:02)
[2016-07-08] MEDS ORDERED: MULTIVITAMIN GUMMIES PO (14:03)
== END 2016-05-17 23:00 ==
LOC: LAB SRH 10:23
DX: K31.84 Gastroparesis (principal); R11.2 Nausea with vomiting, unspecified
CPT/HCPCS: 90074; 90100; 90648; 91096; 91282; 91504; 93140; 95059

== ENCOUNTER 2016-05-28 12:26 | Outpatient (CLI) | payer OTHER ==
--- NOTE | 2016-05-28 15:16 | DIAGNOSTIC IMAGING REPORT ---
PROCEDURE: MR LOWER EXT JOINT WO CONT-RT INDICATION: CHRONIC ANKLE INSTABILITY TECHNIQUE: Sagittal, axial, coronal, and coronal oblique T1 and STIR sequences obtained through the ankle. COMPARISON: None. FINDINGS: Osseous structures and articular surfaces: Marrow signal is diffusely mildly heterogeneous. 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 No osteochondral lesion or cystic changes. There is probable avulsion fracture off the distal fibula incompletely visualized. Mild chondromalacia involving the posterior and middle subtalar joints. No underlying osseous edema. There is susceptibility artifact from second metatarsal fusion hardware. Ligaments: The anterior talofibular ligament is not seen. The fragments of the calcaneofibular ligament near its origin is seen. Posterior talofibular ligament is intact. Proximally, the anterior and posterior tibiofibular ligaments are intact. Medially, the deltoid bands appear grossly intact. Spring ligament bands appear grossly intact where they can be visualized. Tendons: Peroneus brevis tendon is suboptimally seen and probably demonstrates a split tear above and below the lateral malleolus. The posterior tibial tendon appears bifid. Medial tendons are normal in position and signal. Anterior tendon group is unremarkable. The Achilles tendon appears normal. Soft tissues, musculature, and fluid: There is a mild amount of fluid focally in the anterolateral gutter of the ankle, and to a lesser extent anterior to the lateral tibiotalar joint. No debris or scarring. Normal muscular signal. Plantar fascia is normal. Normal fatty signal in the sinus tarsi. IMPRESSION: 1. ATFL and CFL appear torn and there is fluid in the anterolateral gutter suggestive of instability. No focal scar to suggest impingement. 2. Probably chronic split tear of the peroneus brevis tendon. 3. 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 4. Chondromalacia in the lateral tibiotalar joint without underlying osseous change. 5. Remote distal fibular avulsion fracture suspected.
[2016-07-08] MEDS ORDERED: TRAZODONE HCL100 MG PO (13:59)
[2016-07-08] MEDS ORDERED: VISTARIL25 MG PO (13:59)
[2016-07-08] MEDS ORDERED: LATUDA20 MG PO (14:00)
[2016-07-08] MEDS ORDERED: LIPITOR10 MG PO (14:00)
[2016-07-08] MEDS ORDERED: LEXAPRO20 MG PO (14:01)
[2016-07-08] MEDS ORDERED: GABAPENTIN100 MG PO (14:01)
[2016-07-08] MEDS ORDERED: PROBIOTI1 PO (14:02)
[2016-07-08] MEDS ORDERED: ZYRTEC ALLERGY10 MG PO (14:02)
[2016-07-08] MEDS ORDERED: MULTIVITAMIN GUMMIES PO (14:03)
== END 2016-05-28 23:00 ==
LOC: MRI SRH 12:26
DX: M94.271 Chondromalacia, right ankle and joints of right foot (principal); R93.7 Abnormal findings on diagnostic imaging of other parts of musculoskeletal system

== ENCOUNTER 2016-07-09 06:17 | Day surgery (SDC) | payer OTHER ==
--- NOTE | 2016-07-08 19:38 | HISTORY AND PHYSICAL ---
ADMITTED: 07/09/2016 HISTORY OF PRESENT ILLNESS: The patient is a 31-year-old female with a chief complaint of a painful right ankle and foot. She has had significant surgery done on the right foot secondary to a giant cell tumor. Majority of her surgical procedures were carried out at the [facility] by a foot and ankle orthopedist. States now the foot is painful and swollen. She was seen by her primary care provider who then referred her to orthopedics and Dr. Berg then referred her back to our office. MRI was taken at [facility] with MRI findings discussed. MEDICAL/SURGICAL HISTORY: Past medical history: The history of elevated cholesterol, anxiety, depression, giant cell tumor of the lower extremity, bipolar disorder, GERD and hyperlipidemia. Surgical history: Tonsils, adenoids, appendectomy and the aforementioned foot surgeries x6 of the right foot. MEDICATIONS: 1. Trazodone HCL 100 mg 1 by mouth b.i.d. 2. Atorvastatin 10 mg 1 by mouth daily. 3. Buspirone HCL 10 mg 1 by mouth b.i.d. 4. Gabapentin 300 mg tablet 1 by mouth t.i.d. 5. Geodon 60 mg tablet 1 by mouth b.i.d. 6. Lexapro 20 mg 1 by mouth daily. 7. Phenergan 25 mg rectal suppository 1 at bedtime as needed. ALLERGIES: 1. LAMICTAL. 2. LATEX. 3. ZOLOFT. SOCIAL HISTORY: She is . Disabled. Minimally smokes to half-pack cigarettes or less, as well as marijuana daily. FAMILY HISTORY: Noncontributory to the chief complaint. REVIEW OF SYSTEMS: Ten-point review of systems noncontributory to the chief complaint. PHYSICAL EXAMINATION: GENERAL: The patient is alert, oriented x3. HEENT: PERRLA. Normocephalic. HEART: Regular rate and rhythm. Regular S1 and S2. No murmurs. LUNGS: Respiration clear to auscultation. No wheezing, rhonchi, or rales. ABDOMEN: Soft, tender, nondistended. No palpable masses. EXTREMITIES: Lower extremity/Vascular: Dorsalis pedis, posterior tibial pulses are +2/4. Subpapillary venous plexus capillary refill within normal limits. NEUROLOGIC: Negative Babinski. Deep tendon reflex, epicritic sensations are intact. There is some neuropathy on the dorsum of the right foot along the course of a previous healed linear incision. Solid fixation seen at the second MTP. Ankle is positive with a positive anterior drawer sign. Crepitus within the joint. Inversion, eversion strength is diminished, particularly against resistance. LAB/IMAGING: MRI imaging taken at [facility] and read by Laura Cali, reveals torn anterior talar, calcaneal fibular ligament, split tear of the peroneal brevis tendon and a chondromalacia of the lateral tibial joint and a possible bifid posterior tibial tendon. IMPRESSION: 1. See MRI findings, ankle instability and torn anterior talofibular ligament, calcaneal fibular ligament and posterior tibial tendon. PLAN: The patient is scheduled for an outpatient procedure consisting of an ankle arthroscopy with debridement, lateral ankle stabilization, repair of the posterior tibial tendon. There are no contraindications to surgery at this time. Surgery is scheduled on outpatient basis at [facility] on 07/09/2016.
[~2016-07-09] VITALS: Ht 170.8 cm; Wt 127.8 kg
[~2016-07-09 06:17] MED LIST: GABAPENTIN100 MG PO; LATUDA20 MG PO; LEXAPRO20 MG PO; LIPITOR10 MG PO; MULTIVITAMIN GUMMIES PO; PROBIOTI1 PO; TRAZODONE HCL100 MG PO; VISTARIL25 MG PO; ZYRTEC ALLERGY10 MG PO
[2016-07-09] MEDS ORDERED: OXYCODONE HCL10 MG PO (09:45)
--- NOTE | 2016-07-09 09:47 | Provider's Discharge Care Plan ---
Problem, Goal, Plan Problem List 1. Other instability, right ankle Goals: Improve function Instructions: Follow up as directed
--- NOTE | 2016-07-09 09:47 | Provider's Discharge Care Plan ---
Problem, Goal, Plan Problem List 1. Other instability, right ankle Goals: Improve function Instructions: Follow up as directed
--- NOTE | 2016-07-09 10:57 | OPERATIVE REPORT ---
DATE OF SURGERY: 07/09/2016 SURGEON: Zia Delarosa DPM PREOPERATIVE DIAGNOSES: 1. Ankle instability 2. Torn anterior talofibular ligament, right 3. Torn posterior tibial tendon, right POSTOPERATIVE DIAGNOSES: 1. Ankle instability 2. Torn anterior talofibular ligament, right 3. Torn posterior tibial tendon, right PROCEDURES PERFORMED: 1. Ankle arthroscopy with debridement 2. Lateral ankle stabilization. 3. Repair of the posterior tibial tendon ANESTHESIA: General. HEMOSTASIS: Achieved by mid thigh tourniquet inflated to 300 mmHg pressure. TOURNIQUET TIME: 90 minutes. MATERIALS: Used 3-0 and 4-0 Polysorb, 4-0 Surgipro and one Arthrex internal brace with #2 FiberTape. INJECTABLES: Injected 20 mL of 0.5% bupivacaine plain. COMPLICATIONS: None. CONDITION: The patient tolerated anesthesia and procedure well. INDICATIONS: The patient is a 31-year-old female who had a chronic unstable right ankle. MRI revealed a tear of the anterior talofibular ligament and bifid appearance of the posterior tibial tendon. She is well aware of the planned procedure There are no contraindications to surgery at this time. SURGICAL TECHNIQUE: The patient was brought to the operating room and placed on the table in the supine position. General anesthetic was administered. A pneumatic tourniquet was then placed above the right knee. The right lower extremity was prepped and draped in normal sterile fashion. An intraoperative pause was carried out for positive identification, proper limb, and consent form verified and confirmed, as well as administration of intravenous antibiotic. The Esmarch bandage was then utilized to exsanguinate the limb, the tourniquet was then inflated. Attention was directed to procedure #1. Ankle arthroscopy with debridement. The right ankle was then placed in an ankle joint distractor where an 18 gauge needle was used medial to the tibialis anterior tendon on the anterior aspect of the ankle. A #11 blade was utilized to incise to make a small portal incision. It was dissected via portal dissection. A blunt trocar was then placed. The arthroscope was then introduced and entered into the anteromedial aspect of the ankle. The joint was further distracted via the external distractor. On entry, there was noted significant hemorrhagic synovium anteromedial as well as anterolateral, and posterior. Corresponding lateral incision was made, portal dissection carried out. A small joint shaver was then introduced in the hemorrhagic synovium and portions of the anterior talofibular ligament were resected. Posterior ligament structures were intact without any difficulties noted. Approximately 3000 liters of lactated Ringer's were placed through the joint. The instrumentation was removed. The incisions were reapproximated with 4-0 Surgipro. Attention was then directed to procedure #2. Lateral ankle stabilization. At this time, the anterior lateral incision was made on the distal fibula aspect, deepened by sharp and blunt dissection. A Dow[place]iac elevator was utilized to incise the retinaculum and it was then reflected inferiorly. This allowed access to the fibula and a periosteal incision was made, the periosteum was reflected. Aspects the anterior talofibular ligament were noted. The synovium and capsule were incised and then the remaining portions of the ligament were visualized and being partially intact. A guidewire was then driven obliquely on the distal aspect of the fibula, going from distal to proximal and obliquely towards the lateral gutter, verified under fluoroscopy for proper placement. It was then drilled with a 2.7 drill, tapped accordingly, and a SwiveLock with #2 FiberTape was introduced. Dissection was carried across anterior and medially towards the neck of the talus and just inferior to the articulating surface of the talus. Oblique guidewire was then driven from a distal lateral to proximal medial towards the posterior medial malleolus. Verified under fluoro for proper placement, drilled to 7, over-drilled with 3-4, tapped accordingly. An additional SwiveLock was then introduced with the FiberTape with the foot held in a neutral position. The area was flushed. The remaining portions of the anterior talofibular and capsule were reapproximated in a vest and pants fashion. The subcutaneous reapproximated with 4-0 and skin edges reapproximated in running fashion with 4- 0 Surgipro. Attention was then directed to procedure #3. Repair of the posterior tibial tendon. At this time, an incision was made from the tip of the medial malleolus extending distally toward the PT tendon insertion point. Meticulous dissection was carried out with superficial vessels ligated. The moistened sponge was then utilized to remove the deep fascia. A sharp Metzenbaum scissor was then utilized to incise the paratenon. Just inferior to the medial malleolus and extending distally along the course of the tendon, the tendon was noted to separate centrally. A 3.0 Supramid was then utilized to have reanastomose the split. The remaining area was flushed. The paratenon was repaired with 3-0 Polysorb, the subcutaneous with 4-0, and the skin edge reapproximated in running fashion with 4-0 Surgipro. The area was locally anesthetized with the aforementioned local anesthetic. Light compressive dressing was applied. The tourniquet was released with good reactive hyperemia and good digital perfusion. The patient tolerated anesthesia and procedure well and left the room with vital signs stable. While in recovery, written and explicit instructions of touchdown weightbearing with the aid of a fracture boot. Prognosis is guarded. She will be discharged home in stable condition.
[2016-07-09 12:02] VITALS: BP 120/75
== END 2016-07-09 11:53 | disposition home or self-care (01) ==
LOC: SCU SRH 06:17 → OR SRH 06:17
PROVIDERS: Podiatrist
PROC: 0LQS0ZZ Repair Right Ankle Tendon, Open Approach (ICD-10-PCS; principal; 2016-07-09 07:30)
PROC: 0MUQ0JZ Supplement Right Ankle Bursa and Ligament with Synthetic Substitute, Open Approach (ICD-10-PCS; principal; 2016-07-09 07:30)
PROC: 0SBF4ZZ Excision of Right Ankle Joint, Percutaneous Endoscopic Approach (ICD-10-PCS; principal; 2016-07-09 07:30)
DX: S96.811A Strain of other specified muscles and tendons at ankle and foot level, right foot, initial encounter (principal); S93.491A Sprain of other ligament of right ankle, initial encounter; M25.371 Other instability, right ankle; M65.871 Other synovitis and tenosynovitis, right ankle and foot; Z72.0 Tobacco use; J45.909 Unspecified asthma, uncomplicated
CPT/HCPCS: 29229; 29240; 50002; 60001; 70002; 80102; 80144; 80212; 80360; 80852; 83420; 83612; 83860; 84038; 84522; 90074; 90100; 93070; 95059

== ENCOUNTER 2016-08-06 11:03 | Emergency (ER) | payer OTHER ==
[~2016-08-06 11:03] MED LIST changes: +OXYCODONE HCL10 MG PO
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
--- NOTE | 2016-08-06 14:45 | ED ORDER SUMMARY ---
..... Patient: TRAVIS ORTA OrderSheet [facility] VisitID: [id number] [place] [address] 31y, F Registration Date/Time: 08/06/2016 ORDER SHEET Weight: 118.3 kg (stated) Allergies: Latex, Limictial, Zoloft GENERAL ORDERS: Knee 4V Right Urgent (11:34 08/06/2016 Tony Snow) (Ack 12:00 Adrianne) (12:28 Adrianne) Ankle 3 or 4V Right Urgent (11:34 08/06/2016 Tony Snow) (Ack 12:00 Adrianne) (12:28 Adrianne) Hip 2V Left w AP Pelvis Urgent (11:34 08/06/2016 Tony Snow) (Ack 12:00 Adrianne) (12:28 Adrianne) MEDICATION ORDERS: Toradol IM 60 mg (NOW) (13:20 08/06/2016 Tony Snow) (13:54 [facility]) IV FLUIDS: ORDER SHEET NOTES: [Electronically signed by Ashley Oquendo (14:49 08/06/2016)] [Electronically signed by Luis Manuel Coyne Dr. (08:46 08/09/2016)] [Electronically locked/signed by Ashley Oquendo (14:49 08/06/2016)]
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
--- NOTE | 2016-08-06 14:45 | ED ORDER SUMMARY ---
..... Patient: TRAVIS ORTA OrderSheet [facility] VisitID: [id number] [place] [address] 31y, F Registration Date/Time: 08/06/2016 ORDER SHEET Weight: 118.3 kg (stated) Allergies: Latex, Limictial, Zoloft GENERAL ORDERS: Knee 4V Right Urgent (11:34 08/06/2016 Tony Snow) (Ack 12:00 Adrianne) (12:28 Adrianne) Ankle 3 or 4V Right Urgent (11:34 08/06/2016 Tony Snow) (Ack 12:00 Adrianne) (12:28 Adrianne) Hip 2V Left w AP Pelvis Urgent (11:34 08/06/2016 Tony Snow) (Ack 12:00 Adrianne) (12:28 Adrianne) MEDICATION ORDERS: Toradol IM 60 mg (NOW) (13:20 08/06/2016 Tony Snow) (13:54 [facility]) IV FLUIDS: ORDER SHEET NOTES: [Electronically signed by Ashley Oquendo (14:49 08/06/2016)] [Electronically signed by Luis Manuel Coyne Dr. (08:46 08/09/2016)] [Electronically locked/signed by Ashley Oquendo (14:49 08/06/2016)]
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
--- NOTE | 2016-08-09 08:47 | ED MED RECONCILIATION SUMMARY ---
Patient: TRAVIS ORTA Medication Reconciliation Report [facility] VisitID: [id number] [place] [address] 31y, F Registration Date/Time: 08/06/2016 Weight: 118.3 kg Height/Length: 67 in. BMI: 40.9 ALLERGIES: Latex, Limictial, Zoloft The patient's Home Medications are listed below: THE FOLLOWING MEDICATIONS NEED TO BE RECONCILED: ClonazePAM Oral Gabapentin Oral in Am, 600 mg at Noc, 2x a day Latuda Oral Lexapro Oral 20 mg, daily Lipitor Oral 10 mg, daily TraZODone HCl Oral 250mg, at bedtime The source(s) of the original Home Medication information: Not obtained. The following Medications were given to the patient in the Emergency Department: Toradol [IM] IM 60 mg, administered: 08/06/2016 1:54:00 PM The following Medications were prescribed to the patient: Oxycodone 5 mg tablets: take 1 orally every 6 hours as needed for pain. Dispense fifteen (15). No refill. -- Luis Manuel Coyne Dr.
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
--- NOTE | 2016-08-09 08:47 | ED MED RECONCILIATION SUMMARY ---
Patient: TRAVIS ORTA Medication Reconciliation Report [facility] VisitID: [id number] [place] [address] 31y, F Registration Date/Time: 08/06/2016 Weight: 118.3 kg Height/Length: 67 in. BMI: 40.9 ALLERGIES: Latex, Limictial, Zoloft The patient's Home Medications are listed below: THE FOLLOWING MEDICATIONS NEED TO BE RECONCILED: ClonazePAM Oral Gabapentin Oral in Am, 600 mg at Noc, 2x a day Latuda Oral Lexapro Oral 20 mg, daily Lipitor Oral 10 mg, daily TraZODone HCl Oral 250mg, at bedtime The source(s) of the original Home Medication information: Not obtained. The following Medications were given to the patient in the Emergency Department: Toradol [IM] IM 60 mg, administered: 08/06/2016 1:54:00 PM The following Medications were prescribed to the patient: Oxycodone 5 mg tablets: take 1 orally every 6 hours as needed for pain. Dispense fifteen (15). No refill. -- Luis Manuel Coyne Dr.
--- NOTE | 2016-08-09 08:47 | ED MAR SUMMARY ---
..... Medication Administration Record [facility] [address] [place] [address] Patient: TRAVIS ORTA Visit ID: [id number] 31y, F Weight: 118.3 kg Height/Length: 67 in BMI: 40.9 ALLERGIES: Latex, Limictial, Zoloft Given 13:54 08/06/2016 Ashley Oquendo, Medication Administered: TORADOL [IM] (KETOROLAC TROMETHAMINE), Dose: 60 mg IM. Medication Ordered: Toradol IM 60 mg (NOW).
--- NOTE | 2016-08-09 08:47 | ED MAR SUMMARY ---
..... Medication Administration Record Merged With [facility] [address] [place] [address] Patient: TRAVIS ORTA Visit ID: [id number] 31y, F Weight: 118.3 kg Height/Length: 67 in BMI: 40.9 ALLERGIES: Latex, Limictial, Zoloft Given 13:54 08/06/2016 Ashley Oquendo, Medication Administered: TORADOL [IM] (KETOROLAC TROMETHAMINE), Dose: 60 mg IM. Medication Ordered: Toradol IM 60 mg (NOW).
== END 2016-08-06 14:45 | disposition home or self-care (01) ==
LOC: ED SRH 11:03
DX: S83.91XA Sprain of unspecified site of right knee, initial encounter (principal); Z91.040 Latex allergy status; S93.401A Sprain of unspecified ligament of right ankle, initial encounter; S70.02XA Contusion of left hip, initial encounter; V03.90XA Pedestrian on foot injured in collision with car, pick-up truck or van, unspecified whether traffic or nontraffic accident, initial encounter; Y93.89 Activity, other specified; Y99.9 Unspecified external cause status; Y92.481 Parking lot as the place of occurrence of the external cause; F17.200 Nicotine dependence, unspecified, uncomplicated; Z79.899 Other long term (current) drug therapy

== ENCOUNTER 2016-08-30 11:19 | Outpatient (CLI) | payer OTHER | END 2016-08-30 23:00 | LOC: LAB SRH 11:19 | DX: E03.9 Hypothyroidism, unspecified (principal) | CPT/HCPCS: 90074; 90193; 98035 ==